=== PATIENT | male | born 1970 | race Two or more races ===

== ENCOUNTER 2018-05-22 11:09 | Emergency (ER) | payer BC ==
[~2018-05-22] VITALS: Ht 175.3 cm; Wt 90.7 kg
[2018-05-22 11:21] VITALS: Ht 175.3 cm; Wt 90.7 kg
[2018-05-22 11:54] LABS: CHLORIDE SERUM 102 mmol/L (98-107); CREATININE SERUM 0.9 mg/dL (0.7-1.3); GFR1 > 60 mL/min; GLUCOSE SERUM 120 mg/dL (74-106); POTASSIUM SERUM 3.9 mmol/L (3.5-5.1); SODIUM SERUM 138 mmol/L (136-145)
[2018-05-22 11:58] LABS: ALKALINE PHOSPHATASE 92 U/L (46-116); ALT/SGPT 29 U/L (16-63); AST/SGOT 26 U/L (15-37); BILIRUBIN TOTAL 0.7 mg/dL (0.20-1.00)
[2018-05-22 11:59] LABS: TOTAL PROTEIN, SERUM 8.3 g/dL (6.4-8.2)
[2018-05-22 12:10] LABS: BASOPHIL % 0.2 % (0-2); PLATELET COUNT 315 x10^3mcL (130-400)
[2018-05-22 12:16] LABS: RED CELL DISTRIBUTION WIDTH 14.6 % (11.5-14.5)
[2018-05-22 12:41] VITALS: BP 123/83
[2018-05-22 12:45] LABS: microscopic required? NO
[2018-05-22 13:05] LABS: urine erythrocyte NEGATIVE (NEGATIVE)
[2018-05-22 13:17] LABS: AMPHETAMINE QUAL UR NONE DETECTED (See below)
== END 2018-05-22 12:41 | disposition home or self-care (01) ==
LOC: ED 11:09
PROVIDERS: Emergency Medicine
DX: R11.2 Nausea with vomiting, unspecified (principal); E11.9 Type 2 diabetes mellitus without complications; R10.10 Upper abdominal pain, unspecified
CPT/HCPCS: G0480; J1885; J2405; J3490; J7030; Q0092